=== PATIENT | female | born 1980 | race Caucasian/White ===

== ENCOUNTER 2017-04-14 15:51 | Emergency (ER) | payer SELFPAY ==
[~2017-04-14] VITALS: Ht 157.5 cm; Wt 79.4 kg
[2017-04-14 18:14] VITALS: BP 146/65
== END 2017-04-14 18:14 | disposition home or self-care (01) ==
LOC: ED 15:51
DX: S09.90XA Unspecified injury of head, initial encounter (principal); W22.8XXA Striking against or struck by other objects, initial encounter; Y93.89 Activity, other specified; Y99.8 Other external cause status; Y92.89 Other specified places as the place of occurrence of the external cause

== ENCOUNTER 2017-10-26 23:33 | Emergency (ER) | payer SELFPAY ==
[~2017-10-26] VITALS: Ht 157.5 cm; Wt 76.7 kg
[2017-10-26 23:38] VITALS: Ht 157.5 cm; Wt 76.7 kg
[2017-10-27 01:19] VITALS: BP 131/99
== END 2017-10-27 01:19 | disposition home or self-care (01) ==
LOC: ED 23:33
DX: M79.5 Residual foreign body in soft tissue (principal); L03.113 Cellulitis of right upper limb; I10 Essential (primary) hypertension

== ENCOUNTER 2018-08-31 15:02 | Emergency (ER) | payer SELFPAY ==
[~2018-08-31] VITALS: Ht 160 cm; Wt 81.2 kg
[2018-08-31 15:08] VITALS: Ht 160 cm; Wt 81.2 kg
[2018-08-31 20:17] VITALS: BP 138/71
== END 2018-08-31 20:17 | disposition home or self-care (01) ==
LOC: ED 15:02
DX: J02.9 Acute pharyngitis, unspecified (principal); I10 Essential (primary) hypertension; Z98.890 Other specified postprocedural states; Z91.040 Latex allergy status; Z91.018 Allergy to other foods; Z88.8 Allergy status to other drugs, medicaments and biological substances
CPT/HCPCS: J1200; J2930; J7030; Q9967

== ENCOUNTER 2020-05-05 18:24 | Emergency (ER) | payer MEDICAID ==
[~2020-05-05] VITALS: Ht 157.5 cm; Wt 87.5 kg
[2020-05-05 18:41] VITALS: Ht 157.5 cm; Wt 87.5 kg
[2020-05-05 20:09] VITALS: BP 134/80
== END 2020-05-05 20:09 | disposition home or self-care (01) ==
LOC: ED 18:24
DX: S21.001A Unspecified open wound of right breast, initial encounter (principal); I10 Essential (primary) hypertension; F17.210 Nicotine dependence, cigarettes, uncomplicated; Z91.041 Radiographic dye allergy status; X58.XXXA Exposure to other specified factors, initial encounter; Y93.89 Activity, other specified; Y92.89 Other specified places as the place of occurrence of the external cause; Y99.8 Other external cause status